=== PATIENT | male | born 1935 | race Caucasian/White ===

== ENCOUNTER → 2018-05-19 | Outpatient (REF) | payer MEDICARE ==
[~2018-05-19] MED LIST: ELIQUIS5 MG PO; PRISTIQ50 MG PO; SOTALOL HCL80 MG PO; VESICARE5 MG PO; WELCHOL625 MG PO
[2018-05-19 17:05] LABS: HEMATOCRIT 47.2 % (39.0-50.0); HEMOGLOBIN 15.8 g/dl (14.0-18.0); IMMATURE GRANULOCYTES 1.1 % (0.0-5.0); MEAN CELL VOLUME 87.4 fL CALC (80.0-100.0); MEAN CORPUSCULAR HGB 29.3 pG CALC (26.0-32.0); MEAN CORPUSCULAR HGB CONC 33.5 g/L CALC (32.0-36.0); NEUT# 5.54 thou/uL (1.82-7.42); RED BLOOD COUNT 5.4 mill/uL (4.70-6.10); RED CELL DISTRI WIDTH 13.7 % (11.5-15.5)
[2018-05-19 17:46] LABS: ALBUMIN 4.5 g/dL (3.2-5.0); ALKALINE PHOSPHATASE 82 u/l (38-126); ANION GAP 14 (6-22 (CALC)); BILIRUBIN, TOTAL 0.8 mg/dL (0.0-1.4); BUN 19 mg/dL (8-23); BUN/CREATININE RATIO 15 (12-20 (CALC)); CALCULATED LDLCHOLESTEROL 115 mg/dL (62-129 (CALC)); CARBON DIOXIDE 28 mmol/l (22-30); CHLORIDE 104 mmol/l (95-108); CHOLESTEROL HDL RATIO 4.6 (<4.4 (CALC)); CREATININE 1.3 mg/dL (0.7-1.3); GFR 53 ML/MIN (>=60 (CALC)); GFR FOR AFR.AMER. > 60 ML/MIN (>=60 (CALC)); HDL CHOLESTEROL 48 mg/dL (>=40); POTASSIUM 4.7 mmol/l (3.5-5.1); SGOT/AST 29 u/l (19-48); SODIUM 141 mmol/l (137-146); TOTAL CHOLESTEROL 219 mg/dl (0-199); TOTAL TRIGLYCERIDES 280 mg/dl (30-149); VLDL CHOLESTROL 56 mg/dl (0-38 (CALC))
[2018-05-19 18:16] LABS: TSH, 3RD GENERATION 1.06 uIU/mL (0.47 - 4.68)
== END | disposition home or self-care (01) ==
LOC: LAB 15:28
PROVIDERS: ATTEND Internal Medicine
DX: E03.9 Hypothyroidism, unspecified (principal); E78.49 Other hyperlipidemia; I10 Essential (primary) hypertension; D55.9 Anemia due to enzyme disorder, unspecified; Z12.12 Encounter for screening for malignant neoplasm of rectum

== ENCOUNTER → 2018-05-20 | Outpatient (REF) | payer MEDICARE | END | disposition home or self-care (01) | LOC: LABSPEC 11:15 | PROVIDERS: ATTEND Internal Medicine | DX: D55.9 Anemia due to enzyme disorder, unspecified (principal); Z12.12 Encounter for screening for malignant neoplasm of rectum | CPT/HCPCS: G0328 ==

== ENCOUNTER → 2018-06-10 | Outpatient (REF) | payer MEDICARE | END | disposition home or self-care (01) | LOC: DI 09:56 | PROVIDERS: ATTEND Internal Medicine | DX: R05 Cough (principal); R06.02 Shortness of breath; J18.9 Pneumonia, unspecified organism ==